=== PATIENT | male | born 1985 | race Caucasian/White ===

== ENCOUNTER 2016-08-05 16:39 | Emergency (ER) | payer MEDICAID, OTHER ==
[2016-08-05 18:58] VITALS: BP 137/65
[2016-08-05] MEDS ORDERED: Acetaminophen/HYDROcodone 325-10 MG Tab PO ONE (20:06)
--- NOTE | 2016-08-05 20:06 | EDM.PDOC ---
ED HPI GENERAL MEDICAL PROBLEM - General Chief Complaint: General Stated Complaint: TOOTH ABCESS UPPER RIGHT SIDE Time Seen by Provider: 08/05/16 19:55 Source of Information: Reports: Patient History Limitations: Reports: No limitations - History of Present Illness INITIAL COMMENTS - FREE TEXT/NARRATIVE: This 31 yo male patient reports to the ED with a 1 1/2 week history of right upper dental pain. The patient reports he has been to a dentist, but does not have dental insurance. The patient has been taking ibuprofen with little temporary symptom relief. The patient reports he has not been able to find a dentist that will complete the work on his teeth. 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 [No Known Home Meds] 08/05/16 [History] Past Medical History - Past Health History Medical/Surgical History: Denies Medical/Surgical History Social & Family History - Tobacco Use Smoking Status *Q: Current Every Day Smoker Years of Tobacco use: 14 Packs/Tins Daily: 0.3 Used Tobacco, but Quit: No Second Hand Smoke Exposure: No - Caffeine Use Caffeine Use: Reports: Coffee - Recreational Drug Use Recreational Drug Use: No ED ROS GENERAL - Review of Systems Review Of Systems: ROS reveals no pertinent complaints other than HPI. ED EXAM, GENERAL - Physical Exam Exam: See Below General Appearance: alert, WD/WN, moderate distress, thin Eye Exam: bilateral eye: EOMI, normal inspection, other Ears: normal external exam, normal canal, hearing grossly normal, normal TMs Nose: normal inspection, normal mucosa, no blood Throat/Mouth: Normal lips, Normal voice, No airway compromise, Other (The patient has dental decay to his right upper molar with erythema of the gums surrounding the area. ) Head: atraumatic, normocephalic Neck: normal inspection, supple, non-tender, full range of motion Respiratory/Chest: no respiratory distress, lungs clear, normal breath sounds, no accessory muscle use, chest non-tender Cardiovascular: normal peripheral pulses, regular rate, rhythm, no edema, no gallop, no JVD, no murmur, no rub GI/Abdominal: normal bowel sounds, soft, non tender, no organomegaly, no distention, no abnormal bruit, no mass (Male) Exam: Deferred Rectal (Males) Exam: Deferred Back Exam: normal inspection, full range of motion, NT Extremities: normal inspection, normal range of motion, non-tender, normal capillary refill, no pedal edema Neurological: alert, oriented, CN II-XII intact, normal cognition, normal gait, normal reflexes, no motor/sensory deficits Psychiatric: normal affect, normal mood Skin Exam: Warm, Dry, Intact, Normal color, No rash Lymphatic: no adenopathy Course - Vital Signs Last Recorded V/S: Last Vital Signs Temp 37.0 C 08/05/16 18:55 Pulse 82 08/05/16 18:55 Resp 20 08/05/16 18:55 BP 137/65 08/05/16 18:55 Pulse Ox 100 08/05/16 18:55 - Orders/Labs/Meds Meds: Medications Discontinued Medications Generic Name Dose Route Start Last Admin Trade Name Miguel Ángel PRN Reason Stop Dose Admin Acetaminophen/Hydrocodone Bitart 1 tab 08/05/16 20:06 08/05/16 20:16 [place] 325-10 Mg PO 08/05/16 20:07 1 tab ONETIME ONE Administration Clindamycin HCl 300 mg 08/05/16 20:12 08/05/16 20:15 Cleocin PO 08/05/16 20:13 300 mg ONETIME ONE Administration Lidocaine HCl 15 ml 08/05/16 20:12 08/05/16 20:16 Xylocaine 2% Viscous PO 08/05/16 20:13 15 ml ONETIME ONE Administration Departure - Departure Time of Disposition: 20:14 Disposition: Home, Self-Care 01 Condition: fair Clinical Impression: Dental abscess Instructions: Dental Abscess, [id number] Forms: ED Department Discharge Care Plan Goals: The patient was advised of the examination results during the visit. The patient was given an oral dose of Clindamycin (300 mg), an oral dose of [place] ( 10/325) and Viscous Lidocaine (2%). The patient should apply 5 mL of the Viscous Lidocaine every 4 hours as needed for temporary symptom relief. The patient was discharged with a script for Clindamycin (300 mg) #30 to take 1 by mouth 3 times per day for 10 days and Viscous Lidocaine 2% #100 mL to use 5 mL to the area every 6 hours as needed for temporary symptom relief. The patient should follow-up with his dentist as soon as possible for further evaluation and management.
[2016-08-05] MEDS ORDERED: Lidocaine 2% Viscous Solution 15 ML Cup PO ONE (20:12)
[2016-08-05] MEDS ORDERED: Clindamycin HCl 150 MG Cap PO ONE (20:12)
== END 2016-08-05 20:25 | disposition home or self-care (01) ==
LOC: DL.ED 16:39
DX: K04.7 Periapical abscess without sinus (principal); F17.210 Nicotine dependence, cigarettes, uncomplicated; Z88.6 Allergy status to analgesic agent
CPT/HCPCS: 99282; A9270

== ENCOUNTER 2016-08-08 13:21 | Emergency (ER) | payer MEDICAID ==
--- NOTE | 2016-08-08 13:46 | EDM.PDOC ---
ED HPI ENT - General Chief Complaint: ENT Problem Stated Complaint: [id number] ABCESS GETTING WORSE Time Seen by Provider: 08/08/16 13:44 Source of Information: Reports: Patient History Limitations: Reports: No limitations - History of Present Illness INITIAL COMMENTS - FREE TEXT/NARRATIVE: Seen here 08/05/16 by Elizabeth SORENSEN for abscessed tooth. Returns today stating that he has not been able to get into a dentist, and his tooth is worse. C/O uncontrolled pain, and the clindamycin hurts his stomach. Also pt developed a sore throat with a subjective feverish sensation last night. 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) - Related Data Allergies/ADRs: Allergies Allergy/AdvReac Type Severity Reaction Status Date / Time ketorolac [From Toradol] Allergy Rash Verified 08/08/16 13:35 Home Meds: Home Meds Clindamycin HCl [Cleocin HCl] 300 mg PO TID 08/08/16 [History] ClonazePAM [KlonoPIN] 0.5 mg PO BID 08/08/16 [History] Past Medical History - Past Health History Medical/Surgical History: Denies Medical/Surgical History Psychiatric History: Reports: Anxiety - Infectious Disease History Infectious Disease History: Reports: Chicken pox Social & Family History - Family History Family Medical History: Noncontributory - Tobacco Use Smoking Status *Q: Current Every Day Smoker Years of Tobacco use: 14 Packs/Tins Daily: 0.3 Used Tobacco, but Quit: No Second Hand Smoke Exposure: No - Caffeine Use Caffeine Use: Reports: Soda - Recreational Drug Use Recreational Drug Use: No ED ROS ENT - Review of Systems Review Of Systems: ROS reveals no pertinent complaints other than HPI. ED EXAM, ENT - Physical Exam Exam: See Below Exam Limited By: No limitations General Appearance: alert, WD/WN, no apparent distress Eye Exam: bilateral eye: normal inspection Ears: normal external exam, normal canal, hearing grossly normal, normal TMs Nose: normal inspection, normal mucousa, no blood Mouth/Throat: Normal lips, Normal oropharynx, Dental abcess, Dental pain, Dental tenderness, Gum swelling, Pharyngeal erythema Head: atraumatic, normocephalic Neck: normal inspection, supple, non-tender, full range of motion. No: lymphadenopathy (L), lymphadenopathy (R) Respiratory/Chest: no respiratory distress Cardiovascular: regular rate, rhythm Neurological: alert, oriented, normal cognition, normal gait, no motor/sensory deficits Psychiatric: anxious Skin: Warm, Dry, Intact, Normal color, No rash Course - Vital Signs Last Recorded V/S: Last Vital Signs Temp 36.2 C 08/08/16 13:34 Pulse 77 08/08/16 13:34 Resp 16 08/08/16 13:34 BP 140/85 08/08/16 13:34 Pulse Ox 100 08/08/16 13:34 Departure - Departure Time of Disposition: 13:56 Disposition: Home, Self-Care 01 Condition: fair Clinical Impression: Dental abscess Pharyngitis Qualifiers: Pharyngitis/tonsillitis etiology: streptococcus Qualified Code(s): J02.0 - Streptococcal pharyngitis Instructions: Dental Abscess, [id number], Pharyngitis, [id number] Forms: ED Department Discharge Additional Instructions: Discontinue Clindamycin. Rx: Amoxicillin 500mg Rx: Tramadol 50mg Try [place] or [place] for a free/sliding scale dental clinic ([facility]).
== END 2016-08-08 14:09 | disposition home or self-care (01) ==
LOC: DL.ED 13:21
CPT/HCPCS: 99283

== ENCOUNTER 2016-09-15 11:32 | Emergency (ER) | payer SELFPAY ==
--- NOTE | 2016-09-15 11:44 | EDM.PDOC ---
ED HPI ENT - General Chief Complaint: ENT Problem Stated Complaint: [id number] TEETH Time Seen by Provider: 09/15/16 11:40 Source of Information: Reports: Patient History Limitations: Reports: No limitations - History of Present Illness INITIAL COMMENTS - FREE TEXT/NARRATIVE: 31 yo white male c/o tooth pain. Pt. was seen here in August for same problem. Pt. states he will see Dentist Symptom Onset Date: 07/24/16 Symptom Onset Time: 12:00 Timing/Duration: Reports: Week(s): Severity: moderate Location: Reports: mouth Quality: Reports: Ache Worsens with: Reports: Cold therapy Associated Symptoms: Reports: no other symptoms - Related Data Allergies/ADRs: Allergies Allergy/AdvReac Type Severity Reaction Status Date / Time ketorolac [From Toradol] Allergy Rash Verified 08/08/16 13:35 Home Meds: Home Meds ClonazePAM [KlonoPIN] 0.5 mg PO BID 08/08/16 [History] Past Medical History - Past Health History Medical/Surgical History: Denies Medical/Surgical History Psychiatric History: Reports: Anxiety - Infectious Disease History Infectious Disease History: Reports: Chicken pox Social & Family History - Family History Family Medical History: Noncontributory - Tobacco Use Smoking Status *Q: Current Every Day Smoker Years of Tobacco use: 14 Packs/Tins Daily: 0.3 Used Tobacco, but Quit: No Second Hand Smoke Exposure: No - Caffeine Use Caffeine Use: Reports: Soda - Recreational Drug Use Recreational Drug Use: No ED ROS ENT - Review of Systems Review Of Systems: See Below Constitutional: Reports: no symptoms HEENT: Reports: Dental pain Respiratory: Reports: No Symptoms Cardiovascular: Reports: No symptoms Endocrine: Reports: no symptoms GI/Abdominal: Reports: No symptoms : Reports: no symptoms Musculoskeletal: Reports: no symptoms Skin: Reports: no symptoms Neurological: Reports: No Symptoms Psychiatric: Reports: No symptoms Hematologic/Lymphatic: Reports: no symptoms Immunologic: Reports: no symptoms ED EXAM, ENT - Physical Exam Exam: See Below Exam Limited By: No limitations General Appearance: alert, WD/WN, no apparent distress Eye Exam: bilateral eye: PERRL Ears: normal external exam Nose: normal inspection Mouth/Throat: Dental pain, Dental tenderness, Gum swelling Head: atraumatic Neck: normal inspection, non-tender Respiratory/Chest: no respiratory distress, lungs clear Cardiovascular: normal peripheral pulses, regular rate, rhythm Back: normal inspection Extremities: normal inspection Neurological: alert, CN II-XII intact Psychiatric: normal affect Skin: Warm, Intact, No rash Lymphatic: no adenopathy Course - Orders/Labs/Meds Orders: Active Orders 24 hr Category Date Time Status Benzocaine [Hurricaine 20% [place]] Med 09/15/16 11:46 Once 5 ml MUCMEM ONETIME ONE Lidocaine 2% [Xylocaine 2% Viscous] Med 09/15/16 11:46 Once 15 ml PO ONETIME ONE Departure - Departure Time of Disposition: 11:48 Disposition: Home, Self-Care 01 Condition: good Clinical Impression: Dental caries, Odontalgia Forms: ED Department Discharge Additional Instructions: Rest Good Oral Hygiene Take Clindamycin 150mg QID # 40 For Pain use the Toothballs as advised and or Extra strength Tylenol 500mg QID F/U w/ Dentist - My Orders Last 24 Hours: My Active Orders 09/15/16 11:46 Benzocaine [Hurricaine 20% [place]] 5 ml MUCMEM ONETIME ONE Lidocaine 2% [Xylocaine 2% Viscous] 15 ml PO ONETIME ONE - Assessment/Plan Last 24 Hours: My Active Orders 09/15/16 11:46 Benzocaine [Hurricaine 20% [place]] 5 ml MUCMEM ONETIME ONE Lidocaine 2% [Xylocaine 2% Viscous] 15 ml PO ONETIME ONE
[2016-09-15] MEDS ORDERED: Lidocaine 2% Viscous Solution 15 ML Cup PO ONE (11:46)
[2016-09-15] MEDS ORDERED: Benzocaine 20% Oral Spray 59.2 ML Canister MUCMEM ONE (11:46)
== END 2016-09-15 12:02 | disposition home or self-care (01) ==
LOC: DL.ED 11:32
DX: K02.9 Dental caries, unspecified (principal); F41.9 Anxiety disorder, unspecified; F17.210 Nicotine dependence, cigarettes, uncomplicated; Z88.5 Allergy status to narcotic agent
CPT/HCPCS: 99282; A9270

== ENCOUNTER 2016-09-19 15:40 | Emergency (ER) | payer MEDICAID ==
[2016-09-19 16:04] VITALS: BP 128/58
--- NOTE | 2016-09-19 19:29 | EDM.PDOC ---
ED HPI GENERAL MEDICAL PROBLEM - General Chief Complaint: General Stated Complaint: [id number] TOOTH PAIN Time Seen by Provider: 09/19/16 19:26 Source of Information: Reports: Patient History Limitations: Reports: No limitations - History of Present Illness INITIAL COMMENTS - FREE TEXT/NARRATIVE: long h/o tooth problem finally mange to get DDS appt' 09-03-16 Tooth/Teeth Pain Score (Numeric/FACES): 7 - Related Data Allergies Allergy/AdvReac Type Severity Reaction Status Date / Time cyclobenzaprine Allergy Seizure Verified 09/19/16 15:59 [From Flexeril] ketorolac [From Toradol] Allergy Rash Verified 08/08/16 13:35 Home Meds: Home Meds ClonazePAM [KlonoPIN] 0.5 mg PO BID 08/08/16 [History] Acetaminophen [Tylenol Extra Strength] 1,500 mg PO ASDIRECTED PRN 09/19/16 [ History] Ibuprofen 600 mg PO Q8HR PRN 09/19/16 [History] Past Medical History - Past Health History Medical/Surgical History: Denies Medical/Surgical History HEENT History: Reports: None Cardiovascular History: Reports: None Respiratory History: Reports: None Gastrointestinal History: Reports: None Genitourinary History: Reports: None Musculoskeletal History: Reports: None Neurological History: Reports: None Psychiatric History: Reports: Anxiety Endocrine/Metabolic History: Reports: None Hematologic History: Reports: None Immunologic History: Reports: None Oncologic (Cancer) History: Reports: None Dermatologic History: Reports: None - Infectious Disease History Infectious Disease History: Reports: Chicken pox - Past Surgical History Head Surgeries/Procedures: Reports: None Social & Family History - Family History Family Medical History: Noncontributory - Tobacco Use Smoking Status *Q: Current Every Day Smoker Years of Tobacco use: 10 Packs/Tins Daily: 0.5 Used Tobacco, but Quit: No Second Hand Smoke Exposure: No - Caffeine Use Caffeine Use: Reports: Coffee, Soda - Recreational Drug Use Recreational Drug Use: No ED ROS GENERAL - Review of Systems Review Of Systems: ROS reveals no pertinent complaints other than HPI. ED EXAM, GENERAL - Physical Exam Exam: See Below Exam Limited By: No limitations General Appearance: alert, WD/WN, mild distress, other (tearful) Ears: hearing grossly normal Throat/Mouth: Normal voice, No airway compromise Head: atraumatic Neck: non-tender, full range of motion Respiratory/Chest: no respiratory distress Cardiovascular: regular rate, rhythm GI/Abdominal: soft, non tender Neurological: alert, oriented, normal cognition, normal gait, no motor/sensory deficits Psychiatric: tearful Skin Exam: Warm, Dry Lymphatic: no adenopathy Course - Vital Signs Last Recorded V/S: Last Vital Signs Temp 36.6 C 09/19/16 15:54 Pulse 103 H 09/19/16 15:54 Resp 16 09/19/16 15:54 BP 128/58 L 09/19/16 16:04 Pulse Ox 99 09/19/16 15:54 Departure - Departure Time of Disposition: 19:27 Disposition: Home, Self-Care 01 Condition: good Clinical Impression: Dental abscess, Dental caries Instructions: Dental Abscess, [id number] Forms: ED Department Discharge Additional Instructions: 1) avoid solid foods next 48 hours 2) avoid sodas, candies, junk foods 3) follow up with dentist rx given: clindamycin 150mg qid x 40 tramadol 50mg tid prn x 12
== END 2016-09-19 19:35 | disposition home or self-care (01) ==
LOC: DL.ED 15:40
DX: K04.7 Periapical abscess without sinus (principal); K02.9 Dental caries, unspecified; F41.9 Anxiety disorder, unspecified; F17.210 Nicotine dependence, cigarettes, uncomplicated; Z88.5 Allergy status to narcotic agent; Z88.8 Allergy status to other drugs, medicaments and biological substances
CPT/HCPCS: 99282

== ENCOUNTER 2016-10-12 13:28 | Emergency (ER) | payer SELFPAY ==
[2016-10-12 14:26] VITALS: BP 128/76
[2016-10-12] MEDS ORDERED: Acetaminophen/HYDROcodone 325-10 MG Tab ONE (19:45)
--- NOTE | 2016-10-12 19:46 | EDM.PDOC ---
ED HPI GENERAL MEDICAL PROBLEM - General Chief Complaint: Upper Extremity Injury/Pain Stated Complaint: PULLED SHOULDER OUT & TOOTH PAIN [phone] Time Seen by Provider: 10/12/16 19:30 Source of Information: Reports: Patient History Limitations: Reports: No Limitations - History of Present Illness INITIAL COMMENTS - FREE TEXT/NARRATIVE: c/o pain to right shoulder for past 2 days, worse today. Notes slipping and falling over mop bucket and landing on outstretched right arm, hx previous injury to right shoulder, has not followed up with previous injury, was recommended previously that he consult with ortho. Also pain to right upper face and gum with dental pain previous abscess and has not followed with dentist. - Related Data Allergies Allergy/AdvReac Type Severity Reaction Status Date / Time cyclobenzaprine Allergy Seizure Verified 09/19/16 15:59 [From Flexeril] ketorolac [From Toradol] Allergy Rash Verified 08/08/16 13:35 Home Meds: Home Meds Ibuprofen 600 mg PO Q8HR PRN 09/19/16 [History] Past Medical History - Past Health History Medical/Surgical History: Denies Medical/Surgical History HEENT History: Reports: None Cardiovascular History: Reports: None Respiratory History: Reports: None Gastrointestinal History: Reports: None Genitourinary History: Reports: None Musculoskeletal History: Reports: None Neurological History: Reports: None Psychiatric History: Reports: Anxiety Endocrine/Metabolic History: Reports: None Hematologic History: Reports: None Immunologic History: Reports: None Oncologic (Cancer) History: Reports: None Dermatologic History: Reports: None - Infectious Disease History Infectious Disease History: Reports: Chicken Pox - Past Surgical History Head Surgeries/Procedures: Reports: None Male Surgical History: Reports: Other (See Below) Other Male Surgeries/Procedures: varicose veins in scrotum. Social & Family History - Family History Family Medical History: Noncontributory - Tobacco Use Smoking Status *Q: Current Some Day Smoker Years of Tobacco use: 14 Packs/Tins Daily: 1 Used Tobacco, but Quit: No Second Hand Smoke Exposure: No - Caffeine Use Caffeine Use: Reports: Coffee, Soda - Recreational Drug Use Recreational Drug Use: No Review of Systems - Review of Systems Review Of Systems: ROS reveals no pertinent complaints other than HPI. Trauma Exam - Physical Exam Exam: See Below Exam Limited By: No Limitations General Appearance: Reports: Alert, Mild Distress Head: Reports: Atraumatic, Normocephalic Eyes: Bilateral Eye: EOMI, PERRL Ears: Reports: Normal External Exam Nose: Reports: Normal Inspection, Normal Mucousa Throat/Mouth: Reports: Dental Abscess (mild gum swelling and tenderness right upper inscisor.), Dental Decay, Dental Tenderness Neck: Reports: Non-Tender, Full Range of Motion Respiratory Exam: Reports: No Respiratory Distress, Lungs Clear Cardiovascular: Reports: Normal Peripheral Pulses, Regular Rate, Rhythm Extremities: No Evidence of Injury, Pain with Movement (right shoulder, no gross deformity. limited external rotation) Neurologic: Reports: Alert, Oriented x 3 Course - Vital Signs Last Recorded V/S: Last Vital Signs Temp 98.6 F 10/12/16 14:19 Pulse 86 10/12/16 14:19 Resp 14 10/12/16 14:19 BP 128/76 10/12/16 14:19 Pulse Ox 100 10/12/16 14:19 - Orders/Labs/Meds Meds: Medications Discontinued Medications Generic Name Dose Route Start Last Admin Trade Name Miguel Ángel PRN Reason Stop Dose Admin Hydrocodone Bitart/Acetaminophen Confirm 10/12/16 19:45 10/12/16 19:50 [place] 325-10 Mg Administered 10/12/16 19:46 Not Given Dose 2 tab .ROUTE .STK-MED ONE - Radiology Interpretation Free Text/Narrative:: right shoulder xray unremarkable, no sign of fracture or dislocation Departure - Departure Time of Disposition: 19:42 Disposition: Home, Self-Care 01 Condition: good Clinical Impression: Dental caries, Dental abscess Right shoulder strain Qualifiers: Encounter type: initial encounter Qualified Code(s): S46.911A - Strain of unspecified muscle, fascia and tendon at shoulder and upper arm level, right arm , initial encounter - Discharge Information Instructions: Shoulder Pain Forms: ED Department Discharge Additional Instructions: Hydrocodone 10/325 one every 6 hours as needed for severe pain #2 No refill Keflex 500mg one 4 times daily for one week Follow up with dentist follow up with primary care for orthopedic referral for right shoulder pain alternate tylenol 650mg with ibuprofen 600mg every 4 hours for moderate to severe pain ice to right shoulder utilize sling to right shoulder form previous injury
[2016-10-12] MEDS ORDERED: Acetaminophen/HYDROcodone 325-10 MG Tab PO ONE (19:48)
== END 2016-10-12 19:49 | disposition home or self-care (01) ==
LOC: DL.ED 13:28
DX: S46.911A Strain of unspecified muscle, fascia and tendon at shoulder and upper arm level, right arm, initial encounter (principal); K02.9 Dental caries, unspecified; K04.7 Periapical abscess without sinus; F41.9 Anxiety disorder, unspecified; F17.210 Nicotine dependence, cigarettes, uncomplicated; Z88.8 Allergy status to other drugs, medicaments and biological substances; Z88.6 Allergy status to analgesic agent; W22.8XXA Striking against or struck by other objects, initial encounter
CPT/HCPCS: 73030; 99283; A9270

== ENCOUNTER 2016-10-15 20:41 | Emergency (ER) | payer MEDICAID ==
[2016-10-15 23:21] VITALS: BP 150/98
== END 2016-10-15 21:58 ==
LOC: DL.ED 20:41
DX: Z53.21 Procedure and treatment not carried out due to patient leaving prior to being seen by health care provider (principal)
CPT/HCPCS: 99282

== ENCOUNTER 2016-11-10 22:27 | Emergency (ER) | payer SELFPAY ==
[2016-11-10 22:47] VITALS: BP 136/95
[2016-11-10] MEDS ORDERED: Clindamycin HCl 150 MG Cap PO ONE (23:02)
--- NOTE | 2016-11-10 23:08 | EDM.PDOC ---
ED HPI GENERAL MEDICAL PROBLEM - General Chief Complaint: General Stated Complaint: TOOTH INFECTED, [id number] Time Seen by Provider: 11/10/16 22:50 Source of Information: Reports: Patient History Limitations: Reports: No Limitations - History of Present Illness INITIAL COMMENTS - FREE TEXT/NARRATIVE: This 31 yo male patient reports to the ED with dental pain (right upper posterior). The patient has been seen in the ED for similar symptoms in the past , but has not followed-up with a dentist at this time. The patient reports he does have another appointment with a dentist on (11/15/16) in [facility]. Onset: Gradual Duration: Week(s):, Constant, Getting Worse Location: Reports: Face Quality: Reports: Ache, Sharp Severity: Severe Improves with: Reports: None Worsens with: Reports: None Associated Symptoms: Reports: No Other Symptoms Treatments KELP OR SEAGRASS GATHERER: Reports: Acetaminophen, NSAIDS Tooth/Teeth Pain Score (Numeric/FACES): 8 - Related Data Allergies Allergy/AdvReac Type Severity Reaction Status Date / Time cyclobenzaprine Allergy Seizure Verified 11/10/16 22:47 [From Flexeril] ketorolac [From Toradol] Allergy Rash Verified 11/10/16 22:47 Home Meds: Home Meds ClonazePAM [KlonoPIN] 0.5 mg PO BID 10/15/16 [History] Past Medical History - Past Health History Medical/Surgical History: Denies Medical/Surgical History HEENT History: Reports: None Cardiovascular History: Reports: None Respiratory History: Reports: None Gastrointestinal History: Reports: None Genitourinary History: Reports: None Musculoskeletal History: Reports: None Neurological History: Reports: None Psychiatric History: Reports: Anxiety Endocrine/Metabolic History: Reports: None Hematologic History: Reports: None Immunologic History: Reports: None Oncologic (Cancer) History: Reports: None Dermatologic History: Reports: None - Infectious Disease History Infectious Disease History: Reports: Chicken Pox - Past Surgical History Head Surgeries/Procedures: Reports: None Male Surgical History: Reports: Other (See Below) Other Male Surgeries/Procedures: varicose veins in scrotum. Social & Family History - Family History Family Medical History: Noncontributory - Tobacco Use Smoking Status *Q: Current Every Day Smoker Years of Tobacco use: 8 Packs/Tins Daily: 4 Used Tobacco, but Quit: No Second Hand Smoke Exposure: Yes - Caffeine Use Caffeine Use: Reports: Coffee, Soda - Alcohol Use Date of Last Drink: 10/20/16 - Recreational Drug Use Recreational Drug Use: No ED ROS GENERAL - Review of Systems Review Of Systems: ROS reveals no pertinent complaints other than HPI. ED EXAM, GENERAL - Physical Exam Exam: See Below Exam Limited By: No Limitations General Appearance: Alert, WD/WN, Moderate Distress Eye Exam: Bilateral Eye: EOMI, Normal Inspection, PERRL Ears: Normal External Exam, Normal Canal, Hearing Grossly Normal, Normal TMs Nose: Normal Inspection, Normal Mucosa, No Blood Throat/Mouth: Other (The patient has numerous dental caries (right upper posterior mouth) with some erythema of the gums. ) Head: Atraumatic, Normocephalic Neck: Normal Inspection, Supple, Non-Tender, Full Range of Motion Respiratory/Chest: No Respiratory Distress, Lungs Clear, Normal Breath Sounds, No Accessory Muscle Use, Chest Non-Tender Cardiovascular: Normal Peripheral Pulses, Regular Rate, Rhythm, No Edema, No Gallop, No JVD, No Murmur, No Rub GI/Abdominal: Normal Bowel Sounds, Soft, Non-Tender, No Organomegaly, No Distention, No Abnormal Bruit, No Mass (Male) Exam: Deferred Rectal (Males) Exam: Deferred Back Exam: Normal Inspection, Full Range of Motion, NT Extremities: Normal Inspection, Normal Range of Motion, Non-Tender, Normal Capillary Refill, No Pedal Edema Neurological: Alert, Oriented, CN II-XII Intact, Normal Cognition, Normal Gait, Normal Reflexes, No Motor/Sensory Deficits Psychiatric: Anxious Skin Exam: Warm, Dry, Intact, Normal Color, No Rash Lymphatic: No Adenopathy Course - Vital Signs Last Recorded V/S: Last Vital Signs Temp 36.5 C 11/10/16 22:38 Pulse 85 11/10/16 22:38 Resp 17 11/10/16 22:38 BP 136/95 H 11/10/16 22:38 Pulse Ox 99 11/10/16 22:38 - Orders/Labs/Meds Meds: Medications Discontinued Medications Generic Name Dose Route Start Last Admin Trade Name Freq PRN Reason Stop Dose Admin Clindamycin HCl 300 mg 11/10/16 23:02 11/10/16 23:08 Cleocin PO 11/10/16 23:03 Not Given ONETIME ONE - Re-Assessments/Exams Free Text/Narrative Re-Assessment/Exam: 11/10/16 23:12 The patient was advised that we will start him or antibiotics to prevent further infection and given him viscous lidocaine for pain. The patient stated he does not want any of the viscous lidocaine, because over the counter medication works better. The patient was advised that he would not be receiving any narcotic pain medications for his dental pain during this visit. The patient was advised that he needs to see a dentist for management of his dental caries. The patient was advised that this was the 5th visit for the same dental pain stretching back several months and narcotic medications are not fixing the problem. Again, the patient was offered antibiotics to prevent infection and viscous lidocaine for temporary pain relief. The patient stated that he can " get better shit off the streets." The patient left the ED without antibiotics or lidocaine. The patient requested to file a complaint against me as the provider for refusing to give him narcotic medications. Departure - Departure Time of Disposition: 23:04 Disposition: Home, Self-Care 01 Condition: fair Clinical Impression: Dental abscess, Dental caries - Discharge Information Instructions: Dental Abscess, [id number], Dental Caries Forms: ED Department Discharge Care Plan Goals: The patient was advised of the examination results during the visit in the ED. The patient was given an oral dose of Clindamycin (300 mg) while in the emergency department. The patient refused Viscous Lidocaine for temporary pain relief. The patient was encouraged to follow-up with a dentist for continued evaluation and management. If the patient has any additional symptoms or concerns, the patient should visit his dental provider or return to the emergency department.
== END 2016-11-10 23:11 | disposition home or self-care (01) ==
LOC: DL.ED 22:27
DX: K02.9 Dental caries, unspecified (principal); K04.7 Periapical abscess without sinus; Z88.8 Allergy status to other drugs, medicaments and biological substances; F17.210 Nicotine dependence, cigarettes, uncomplicated
CPT/HCPCS: 99283